=== PATIENT | male | born 1980 | race Caucasian/White ===

== ENCOUNTER 2024-12-15 12:06 | Inpatient (IN) | payer OTHER, SELFPAY ==
[2024-12-15] VITALS (22 sets, daily range): BP systolic 147–192; BP diastolic 88–151; PULSE 95–123; RESP 8–35; TEMP 36.1–36.2; O2SAT 91–100; BMI 31.0
--- NOTE | 2024-12-15 12:10 | EKG_ITS ---
[address] [address] Test Date: 2024-12-15 Pat Name: Darell Nelson Department: Room: Gender: Male Flight Follower: DAVIAN : 1980 Requested By: Order Number: [id number] Reading MD: Dudley Hernandez Measurements Intervals [place] Rate: 98 P: 65 HI: 162 QRS: 64 QRSD: 110 T: 45 QT: 370 QTc: 472 Interpretive Statements Sinus rhythm Incomplete right bundle branch block Electronically Signed On 12-19-2024 9:11:46 PDT by Dudley Hernandez
--- NOTE | 2024-12-15 12:10 | DI.RAD.S_ITS ---
PROCEDURE: XR CHEST 1V INDICATIONS: Chest Pain TECHNIQUE: One view of the chest was acquired. COMPARISON: None. FINDINGS AND IMPRESSION: Large left pneumothorax. Called to Dr. Starr. Surveillance imaging for recommended following treatment to exclude underlying lesion. Normal heart size. Unremarkable osseous structures. Dictated by: Kofi Keenan M.D. on 12/15/2024 at 13:01 Approved by: Kofi Keenan M.D. on 12/15/2024 at 13:02
--- NOTE | 2024-12-15 12:46 | ED_ITS ---
HPI - Chest Pain General Chief Complaint: Chest Pain Stated Complaint: SOB, chesp pain Lt shoulder pain blurred vision Time Seen by Provider: 12/15/24 12:37 Source: patient Mode of arrival: Ambulatory Limitations: no limitations History of Present Illness HPI narrative: This is a 44-year-old male who is previously healthy complaining of left-sided chest pain with shortness of breath. Onset was about an hour prior to arrival. Says that he got up to get a glass of water and suddenly started feeling pain in the left side of the chest, he also says he felt a little lightheaded and briefly had blurry vision. He is still having some chest pain and it hurts to breathe. 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 Has not been coughing has not had fevers no chest trauma recently. Related Data Home Medications ?Medication ?Instructions ?Recorded ?Confirmed No Known Home Medications 12/15/24 080 10/04 Allergies Allergy/AdvReac Type Severity Reaction Status Date / Time No Known Drug Allergies Allergy Verified 12/15/24 16:24 Patient History Social History household members: none Smoking Status: Current every day smoker tobacco type: vaping Exam Initial Vital Signs Initial Vital Signs: Vital Signs Temperature 96.9 F L 12/15/24 12:11 Pulse Rate 101 H 12/15/24 12:11 Respiratory Rate 20 12/15/24 12:11 Blood Pressure 177/102 H 12/15/24 12:11 Pulse Oximetry 100 12/15/24 12:11 Oxygen Delivery Method Room Air 12/15/24 12:11 vital signs are reviewed Const General: cooperative and No acute distress [facility] Head: normocephalic and atraumatic Face and sinus: face symmetric Mouth: moist mucous membranes Eyes Pupils: PERRL EOM: EOM intact bilaterally Neck Neck: normal visual inspection, supple and No JVD Chest Chest: normal inspection of the chest Resp Other: Lungs are clear, decreased breath sounds on the left, no crepitance Cardio Rate: regular rate Rhythm: regular rhythm Heart Sounds: no murmurs Other: Normal heart rate GI Inspection: normal to inspection Palpation: soft Auscultation: normal bowel sounds Back/Spine/Pelvis Back: normal to inspection Skin General: no rashes or lesions noted and warm Neuro General: patient alert, patient oriented x3 and moves all extremities Speech: speech normal Extrem General: full ROM Psych Appearance: grossly normal Course Orders Ordered: ED Orders 12/15/24 11:52 Complete Blood Count AUTO DIFF Stat Comprehensive Metabolic Panel Stat Lipase Stat Magnesium Stat NT-proBNP (BNP-Adult 18+) Stat PTT Partial Thromboplastin Andrade Stat Prothrombin Time INR Stat Troponin & CK Cardiac Panel Stat 12/15/24 12:10 XR chest 1V Stat EKG-12 Lead Stat 12/15/24 12:42 Consult to General Surgery Stat 12/15/24 13:38 Chest [XR chest 1V] Stat 12/15/24 14:23 Urine Drug Screen, Rapid Stat EKG-12 Lead Stat 12/15/24 15:02 Troponin & CK Cardiac Panel Stat Type and Screen Stat 12/16/24 Lipase Routine 12/16/24 14:23 Complete Blood Count AUTO DIFF Stat Comprehensive Metabolic Panel Stat Ondansetron HCl (Ondansetron 4 Mg/2 Ml Inj) 4 mg IV Q4HR JUN Discontinued Medications Hydrocodone Bitart/Acetaminophen (Hydrocodone/Acet 5/325 Tablet) 1 tab PO NOW ONE Stop: 12/15/24 14:24 Aspirin (Aspirin 81 Mg Chew Tab) 324 mg PO NOW ONE Stop: 12/15/24 12:10 Last Admin: 12/15/24 12:43 Dose: Not Given Documented By: PATRICIA Diazepam (Diazepam 10 Mg/2 Ml Syringe) 5 mg IV NOW ONE Stop: 12/15/24 13:07 Last Admin: 12/15/24 13:22 Dose: 5 mg Documented By: ELISHA Diazepam (Diazepam 10 Mg/2 Ml Syringe) 5 mg IV NOW ONE Stop: 12/15/24 14:38 Last Admin: 12/15/24 14:40 Dose: 5 mg Documented By: [facility] Diphtheria/Tetanus/Acell Pertussis (Tet,Diph,Pertuss(Acell),Vac/Pf 0.5 Ml Syringe) 0.5 ml IM .ONCE ONE Stop: 12/15/24 14:24 Hydromorphone HCl (Hydromorphone 1 Mg Inj) 1 mg IV NOW ONE Stop: 12/15/24 12:43 Last Admin: 12/15/24 14:32 Dose: Not Given Documented By: MARIZOL Lidocaine/Epinephrine (Lidocaine 1% W/Epi 10ml) 4 ml INJ INTRA-OP ONE Stop: 12/15/24 13:19 Last Admin: 12/15/24 14:35 Dose: 4 ml Documented By: ELISHA Morphine Sulfate (Morphine 4 Mg/Ml Inj) 10 mg IV NOW ONE Stop: 12/15/24 13:07 Last Admin: 12/15/24 14:34 Dose: 10 mg Documented By: ELISHA Morphine Sulfate (Morphine 4 Mg/Ml Inj) 10 mg IV NOW ONE Stop: 12/15/24 13:43 Last Admin: 12/15/24 13:42 Dose: 10 mg Documented By: ELISHA Morphine Sulfate (Morphine 4 Mg/Ml Inj) 4 mg IV NOW ONE Stop: 12/15/24 14:39 Last Admin: 12/15/24 13:50 Dose: 4 mg Documented By: ELISHA Consultations Consultation #1: Consulted General surgery Dr. Montalvo immediately after seeing the patient. Chest tube was placed by Dr. Linda hudson. Patient will be admitted to Dr. Santana for Vital Signs Vital signs: Vital Signs - 8 hr 12/15/24 12:11 12/15/24 12:39 12/15/24 12:58 Temperature 96.9 F L Pulse Rate 101 H 99 H 104 H Respiratory Rate 20 20 Blood Pressure 177/102 H 192/151 H Pulse Oximetry 100 91 94 Oxygen Delivery Method Room Air Oxygen Flow Rate 12/15/24 13:00 12/15/24 13:02 12/15/24 13:02 Temperature Pulse Rate 101 H 102 H Respiratory Rate 15 22 Blood Pressure 189/106 H Pulse Oximetry 94 94 Oxygen Delivery Method Nasal Cannula Oxygen Flow Rate 2 12/15/24 13:20 12/15/24 13:20 12/15/24 13:27 Temperature Pulse Rate 104 H Respiratory Rate 26 H Blood Pressure 169/113 H 173/106 H Pulse Oximetry Oxygen Delivery Method Oxygen Flow Rate 12/15/24 13:27 12/15/24 13:30 12/15/24 13:30 Temperature Pulse Rate 102 H Respiratory Rate 14 Blood Pressure 189/106 H Pulse Oximetry 100 98 Oxygen Delivery Method Nasal Cannula Oxygen Flow Rate 2 12/15/24 13:30 12/15/24 13:35 12/15/24 13:35 Temperature Pulse Rate 105 H 109 H Respiratory Rate 15 20 Blood Pressure 189/107 H Pulse Oximetry 100 100 Oxygen Delivery Method Oxygen Flow Rate 12/15/24 13:40 12/15/24 13:40 12/15/24 13:45 Temperature Pulse Rate 120 H Respiratory Rate 26 H Blood Pressure 175/95 H 157/98 H Pulse Oximetry 99 Oxygen Delivery Method Oxygen Flow Rate 12/15/24 13:45 12/15/24 13:50 12/15/24 13:50 Temperature Pulse Rate 123 H 118 H Respiratory Rate 21 24 Blood Pressure 169/96 H Pulse Oximetry 98 100 Oxygen Delivery Method Oxygen Flow Rate 12/15/24 13:55 12/15/24 13:55 12/15/24 14:00 Temperature Pulse Rate 111 H 113 H Respiratory Rate 11 L 11 L Blood Pressure 173/96 H Pulse Oximetry 100 100 Oxygen Delivery Method Oxygen Flow Rate 12/15/24 14:00 12/15/24 14:06 12/15/24 14:06 Temperature Pulse Rate 113 H Respiratory Rate 26 H Blood Pressure 183/91 H 191/108 H Pulse Oximetry 100 Oxygen Delivery Method Oxygen Flow Rate 12/15/24 14:16 12/15/24 14:16 12/15/24 14:30 Temperature Pulse Rate 114 H Respiratory Rate 29 H Blood Pressure 177/89 H 163/100 H Pulse Oximetry 98 Oxygen Delivery Method Oxygen Flow Rate 12/15/24 14:30 12/15/24 14:45 12/15/24 14:45 Temperature Pulse Rate 102 H 104 H Respiratory Rate 12 22 Blood Pressure 188/103 H Pulse Oximetry 96 96 Oxygen Delivery Method Oxygen Flow Rate 12/15/24 15:00 12/15/24 15:00 Temperature Pulse Rate 104 H Respiratory Rate 35 H Blood Pressure 174/97 H Pulse Oximetry 94 Oxygen Delivery Method Oxygen Flow Rate MDM - Chest Pain Lab Data Lab results narrative: Normal troponin, CMP is unremarkable except for CO2 of 19. Normal white count and hemoglobin and platelets 12/15/24 11:52 12/15/24 11:52 Labs: Lab Results 12/15/24 Range/Units 11:52 WBC 10.5 (4.5-11.0) X10^3/uL RBC 5.61 (4.5-5.9) X10^6/uL Hgb 16.9 (13.5-17.5) g/dL Hct 48.0 (41-53) % MCV 85.6 (80-100) fL MCH 30.1 (26-34) PG MCHC 35.2 (30-36) % RDW 14.1 (11.6-14.8) % Plt Count 209 (150-400) X10^3/uL Neut % (Auto) 71.1 (50-75) % Lymph % (Auto) 17.9 L (25-40) % [place] % (Auto) 8.0 (3-14) % Eos % (Auto) 1.8 L (2-4) % Baso % (Auto) 1.2 (0-2) % Neut # (Auto) 7500 H (4572-4370) /uL Lymph # (Auto) 1900 (4412-3116) /uL [place] # (Auto) 800 (0-900) /uL Eos # (Auto) 200 (0-450) /uL Baso # (Auto) 100 (0-100) /uL PT 11.2 (9.4-12.5) SECONDS INR 1.0 (0.9-1.3) APTT 33 (25.1-36.5) SECONDS Sodium 137 (137-145) mmol/L Potassium 4.3 (3.4-5.1) mmol/L Chloride 104 (98-107) mmol/L Carbon Dioxide 19 L (22-32) mmol/L BUN 15 (9-20) mg/dL Creatinine 0.99 (0.66-1.25) mg/dL Estimated GFR > 60 (>60) mL/min BUN/Creatinine Ratio 15.2 (6-22) Glucose 94 (70-99) mg/dL Calcium 9.5 (8.4-10.2) mg/dL Magnesium 1.9 (1.6-2.3) mg/dL Total Bilirubin 1.5 H (0.2-1.3) mg/dL AST 52 (17-59) IU/L ALT 53 H (<50) IU/L Alkaline Phosphatase 95 (38-126) U/L Total Creatine Kinase 363 H (55-170) U/L Troponin I < 0.012 (0.01-0.034) ng/mL NT-Pro-B Natriuret Pep < 20 (<125) pg/mL Total Protein 9.0 H (6.3-8.2) g/dL Albumin 5.1 H (3.5-5.0) g/dL Globulin 3.9 (1.7-4.1) g/dL Albumin/Globulin Ratio 1.3 (1.0-2.8) Lipase 39 (23-300) U/L Imaging Data Chest x-ray: My Impression: Independent review his chest x-ray, large left pneumothorax ECG Data Attestation: I personally reviewed and interpreted this ECG as follows: (Normal sinus rhythm at 98 right bundle-branch pattern no acute ST segment changes no old EKG available for comparison) MDM Narrative Medical decision making narrative: 44-year-old man presenting with chest pain was found to have a large pneumothorax of spontaneous etiology. Did not have tension, cardiac workup is reassuring. Patient is admitted to General surgery after chest tube placement by general surgery in the emergency department Discharge Plan Departure Patient Disposition: Admitted As Inpatient Clinical Impression: Pneumothorax Qualifiers: Pneumothorax type: spontaneous, primary Qualified Code(s): J93.11 - Primary spontaneous pneumothorax Admit Date/Time: 12/15/24 15:00 Admit Provider: Mazin Montalvo
[2024-12-15 13:02] LABS: Add Manual Diff / Slide Review NO; Hematocrit 48.0 % (41-53); Hemoglobin 16.9 g/dL (13.5-17.5); Lymphocytes Absolute Auto 1900 /uL (1100-4500); Mean Corpuscular HGB Conc 35.2 % (30-36); Mean Corpuscular Hemoglobin 30.1 PG (26-34); Mean Corpuscular Volume 85.6 fL (80-100); Platelet Count 209 X10^3/uL (150-400)
[2024-12-15 13:11] LABS: INR 1.0 (0.9-1.3); Prothrombin Time 11.2 SECONDS (9.4-12.5)
[2024-12-15 13:14] LABS: PTT Partial Thromboplastin Tim 33 SECONDS (25.1-36.5)
--- NOTE | 2024-12-15 13:38 | DI.RAD.S_ITS ---
PROCEDURE: XR CHEST 1V INDICATIONS: chest tube placement TECHNIQUE: One view of the chest was acquired. COMPARISON: [facility], , XR CHEST 1V, 12/15/2024, 12:18. FINDINGS: Surgical changes and devices: Left mid chest pleural pleural catheter Lungs and pleura: Decreased left pneumothorax with areas of mid lung opacities reflecting resolving atelectasis. No pleural effusion. Left lung is clear. Mediastinum: Mediastinal contours appear normal. Heart size is normal. Bones and chest wall: No suspicious bony lesions. Overlying soft tissues appear unremarkable. IMPRESSION: Decreased size of left pneumothorax status post chest tube placement. Approved by: Melida Wilson M.D.,Ph.D. on 12/15/2024 at 14:53
[2024-12-15] MEDS: MORPHINE 4 MG/ML INJ 10 MG IV ×2 (13:42→14:34)
[2024-12-15] MEDS: MORPHINE 4 MG/ML INJ IV (13:50)
[2024-12-15 14:07] LABS: Alanine Aminotransferase 53 IU/L (<50); Albumin 5.1 g/dL (3.5-5.0); Albumin Globulin Ratio 1.3 (1.0-2.8); Alkaline Phosphatase 95 U/L (38-126); Blood Urea Nitrogen 15 mg/dL (9-20); Calcium 9.5 mg/dL (8.4-10.2); Carbon Dioxide 19 mmol/L (22-32); Chloride 104 mmol/L (98-107); Creatine Kinase 363 U/L (55-170); Estimated Glomerular Filt Rate > 60 mL/min (>60); Globulin 3.9 g/dL (1.7-4.1); Glucose 94 mg/dL (70-99); HEMOLYSIS 53 (0-50); Lipase 39 U/L (23-300); Magnesium 1.9 mg/dL (1.6-2.3); Potassium 4.3 mmol/L (3.4-5.1); Sodium 137 mmol/L (137-145); Total Protein 9.0 g/dL (6.3-8.2)
--- NOTE | 2024-12-15 14:14 | P.HP_ITS ---
History of Present Illness History of Present Illness Date Patient Seen: 12/15/24 Time Patient Seen: 12:30 Date of Onset of Symptoms: 12/15/24 Chief complaint: SOB, chesp pain Lt shoulder pain blurred vision Narrative: Patient is a 44-year-old white male presents to the emergency room left-sided chest pain shortness of breath would occur at work after coughing and approximately 11:30 a.m.. Patient was worked up by the emergency room was noted to have a left 50% pneumothorax I was asked to see patient for surgical evaluation and placement of chest tube. Patient's admitting laboratory shows WBC of 10.5 hemoglobin is 16.9 hematocrit is 48 platelets are 209,000 PT is 11.2 PTT is 33 sodium is 137 potassium 4.3 chloride 104 bicarb is 19 BUN of 5 creatinine 0.99 random blood sugar is 94 total bilirubin is 1.5 AST is 52 ALT is 53 alkaline phosphatase 95 patient's CPK is 363 lipase is 39. Chest x-ray was performed which shows a 50% left pneumothorax. Patient has not seen a family physician in years Allergies: NKDA Medications: None Past medical history: Patient denies any other heart lungs digestive musculoskeletal neurological seizure disorder psychiatric problems risks infectious disease HIV or AIDS Past surgical history unremarkable denies any history of screening scopes Social history works in the [employer], history of tobacco use 1/2-1 pack per day times 25 years. Two years ago vaping for 2-1/2 years alcohol drinks 4 beers per day states they only drinks 12 beers per week denies any recreational drugs but then later recanted and states that he has done all drugs in the past including injecting meth. Vitals: Patient is 5 ft 9210 lb, temperature is 96.9? pulse is 104 respirations 20 BP is 192/151 SaO2 is 94% Heart regular rate and rhythm without murmurs lungs are clear and the right but no breath sounds are noted on the left abdomen is soft nondistended and a moist gauze Allison Almazan's Lui's McBurney's no masses or peritoneal signs are elicited musculoskeletal moderate muscle tone and strength bilaterally no gross deficits elicited in Patient was seen in consultation discussed with patient the need for chest tube placement procedure risks and complications were fully explained including risk for cardiopulmonary depression infection bleeding and need for a larger chest tube if dislodged. Patient understood and consented consent was performed time- out was performed patient procedure and surgeon. Patient was prepped and draped in usual sterile fashion with Lamin. The patient was given adequate IV sedation was given 10 of Valium and morphine 20 mg patient was still awake and communicating. Patient with liberally injected with xylocaine 1% with epi overlying the 5th 6th interspace liberally injected the skin subQ and the intercostals and the periosteum of the superior rib. Incision was made with 15. Knife blade dissected down with a large hemostat entered into the chest cavity with a large gush of air the 20 Wolof tube was inserted with a hemostat advanced to the appropriate distance and then placed a suction suctioned to the pleura vac previously been prepared was quite poor with withdrawing the tube and had excellent air flow no active air leak was noted this was then sutured in place with 0 silk x2 patient then had drain sponge was applied bulky bandage and taped in place with silk tape the connection to the Pleur-evac was taped with silk tape chest x-ray shows reinflation of the left lung. Impression: Left spontaneous pneumothorax need for left chest tube History of tobacco abuse 1/2-1 pack per day times 25 years. 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 Slightly elevated CPK Elevated total bilirubin Plan: Discussed with patient the finding we will go ahead and admit to the hospital and monitor we will consult the hospitalist for the changes in the CPK we will go ahead and continue suction for the Pleur-Evac 0 if thought lung remains inflated for 24 hours we will DC suctioned and DC chest tube in the next 48 hours patient will also have a drug screen performed as do the elevated bilirubin we will follow patient closely no need for replacement with the tube patient was given precautions about getting out of bed if he dislodged as the tube may need to reinserted at bedside patient understands all questions answered to satisfaction we will follow patient closely. No letter to family physician he has none. Meds Home Medications and Allergies Allergies Allergy/AdvReac Type Severity Reaction Status Date / Time No Known Drug Allergies Allergy Verified 12/15/24 12:11 Exam Vital Signs (past 8 hours): - 12/15/24 12:11 12/15/24 12:39 12/15/24 12:58 Temperature 96.9 F L Pulse Rate 101 H 99 H 104 H Respiratory Rate 20 20 Blood Pressure 177/102 H 192/151 H Pulse Oximetry 100 91 94 Oxygen Delivery Method Room Air Oxygen Flow Rate 12/15/24 13:30 Temperature Pulse Rate Respiratory Rate Blood Pressure Pulse Oximetry 98 Oxygen Delivery Method Nasal Cannula Oxygen Flow Rate 2 Oxygen Delivery Method Nasal Cannula Oxygen Flow Rate 2 Objective Labs 12/15/24 11:52 12/15/24 11:52 Labs: Laboratory Results - last 24 hr 12/15/24 11:52 WBC 10.5 RBC 5.61 Hgb 16.9 Hct 48.0 MCV 85.6 MCH 30.1 MCHC 35.2 RDW 14.1 Plt Count 209 Neut % (Auto) 71.1 Lymph % (Auto) 17.9 L [place] % (Auto) 8.0 Eos % (Auto) 1.8 L Baso % (Auto) 1.2 Neut # (Auto) 7500 H Lymph # (Auto) 1900 [place] # (Auto) 800 Eos # (Auto) 200 Baso # (Auto) 100 PT 11.2 INR 1.0 APTT 33 Sodium 137 Potassium 4.3 Chloride 104 Carbon Dioxide 19 L BUN 15 Creatinine 0.99 Estimated GFR > 60 BUN/Creatinine Ratio 15.2 Glucose 94 Calcium 9.5 Magnesium 1.9 Total Bilirubin 1.5 H AST 52 ALT 53 H Alkaline Phosphatase 95 Total Creatine Kinase 363 H Total Protein 9.0 H Albumin 5.1 H Globulin 3.9 Albumin/Globulin Ratio 1.3 Lipase 39 Assessment & Plan Time-Based Coding :: [TOTAL MINUTES] spent with patient and on the chart (including review of chart, obtaining history, exam, reviewing outside data, placing orders, documenting exam and treatment plan, and counseling patient) on [DATE]. [employer] Document charge(s): Yes
[2024-12-15 14:18] LABS: NT-proBNP (BNP-Adult 18+) < 20 pg/mL (<125); Troponin I < 0.012 ng/mL (0.01-0.034)
[2024-12-15] MEDS: LIDOCAINE 1% W/EPI 10ML 4 ML INJ (14:35)
--- NOTE | 2024-12-15 15:16 | DI.RAD.S_ITS ---
PROCEDURE: XR CHEST 1V INDICATIONS: chest tube manipulation TECHNIQUE: One view of the chest was acquired. COMPARISON: [facility], [place], XR CHEST 1V, 12/15/2024, 13:45. [facility], CR, XR CHEST 1V, 12/15/2024, 12:18. FINDINGS AND IMPRESSION: Left chest tube, now positioned slightly deeper. [id number] left pneumothorax persists, though decreased from initial images. There is subcutaneous emphysema. Normal heart size. Dictated by: Kofi Keenan M.D. on 12/15/2024 at 15:44 Approved by: Kofi Keenan M.D. on 12/15/2024 at 15:45
[2024-12-15 15:29] LABS: Creatine Kinase 316 U/L (55-170)
[2024-12-15 15:41] LABS: Troponin I < 0.012 ng/mL (0.01-0.034)
--- NOTE | 2024-12-15 18:05 | P.CONS_ITS ---
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 Finding in the emergency room significant for potential pneumothorax of the left lung. Chest tube was placed with reinflation. Incidental findings in the workup were significant for mild elevation of bilirubin 1.5 CK of 363. The remainder of the hemogram and comprehensive metabolic profile were unremarkable. Social history significant for history of smoking and present vaping and reported consumption of a 12 pack of alcohol consumed over the the week and occasionally some larger consumption on the weekend. Review of systems: No fever or chills No unusual weight loss or weight gain No nausea vomiting diarrhea No dyspnea with exertion normally No paresthesia or paresis Physical exam: Well-developed adult male obese but muscular HEENT unremarkable Neck no carotid bruits Heart rate and rhythm regular no murmurs Lungs with a pleural rub on the left normal lung sounds in the right Abdomen nondistended Extremities no edema Neurologic nonfocal For objective laboratory and imaging data please see bottom of the note: Assessment and plan: Spontaneous tension pneumothorax status post chest tube placement with good seal and good inflation * Management per surgery service CPK 360: * Seems to be deescalating already maybe some muscle injury from previous heavy work yesterday * Doubt this is clinically significant Slight elevation of bilirubin 1.5 * Might be liver injury from alcohol consumption * Check hepatitis panel * Discontinue alcohol consult Alcohol consumption * May be compromising patient's health * Recommended abstinence DVT prophylaxis: * No indication Code status: * Full code Fifty-five minutes were involved in the management of this patient in including direct [id number] contact and evaluation of the patient review of objective findings laboratory and direct visualization of images and discussion with surgeon and emergency room physician Meds Home Medications and Allergies Home Medications ?Medication ?Instructions ?Recorded ?Confirmed ?Type No Known Home Medications 12/15/2410/04 History Allergies Allergy/AdvReac Type Severity Reaction Status Date / Time No Known Drug Allergies Allergy Verified 12/15/24 16:24 Exam Vital Signs (past 8 hours): - 12/15/24 12:11 12/15/24 12:39 12/15/24 12:58 Temperature 96.9 F L Pulse Rate 101 H 99 H 104 H Respiratory Rate 20 20 Blood Pressure 177/102 H 192/151 H Pulse Oximetry 100 91 94 Oxygen Delivery Method Room Air Oxygen Flow Rate 12/15/24 13:00 12/15/24 13:02 12/15/24 13:02 Temperature Pulse Rate 101 H 102 H Respiratory Rate 15 22 Blood Pressure 189/106 H Pulse Oximetry 94 94 Oxygen Delivery Method Nasal Cannula Oxygen Flow Rate 2 12/15/24 13:20 12/15/24 13:20 12/15/24 13:27 Temperature Pulse Rate 104 H Respiratory Rate 26 H Blood Pressure 169/113 H 173/106 H Pulse Oximetry Oxygen Delivery Method Oxygen Flow Rate 12/15/24 13:27 12/15/24 13:30 12/15/24 13:30 Temperature Pulse Rate 102 H Respiratory Rate 14 Blood Pressure 189/106 H Pulse Oximetry 100 98 Oxygen Delivery Method Nasal Cannula Oxygen Flow Rate 2 12/15/24 13:30 12/15/24 13:35 12/15/24 13:35 Temperature Pulse Rate 105 H 109 H Respiratory Rate 15 20 Blood Pressure 189/107 H Pulse Oximetry 100 100 Oxygen Delivery Method Oxygen Flow Rate 12/15/24 13:40 12/15/24 13:40 12/15/24 13:45 Temperature Pulse Rate 120 H Respiratory Rate 26 H Blood Pressure 175/95 H 157/98 H Pulse Oximetry 99 Oxygen Delivery Method Oxygen Flow Rate 12/15/24 13:45 12/15/24 13:50 12/15/24 13:50 Temperature Pulse Rate 123 H 118 H Respiratory Rate 21 24 Blood Pressure 169/96 H Pulse Oximetry 98 100 Oxygen Delivery Method Oxygen Flow Rate 12/15/24 13:55 12/15/24 13:55 12/15/24 14:00 Temperature Pulse Rate 111 H 113 H Respiratory Rate 11 L 11 L Blood Pressure 173/96 H Pulse Oximetry 100 100 Oxygen Delivery Method Oxygen Flow Rate 12/15/24 14:00 12/15/24 14:06 12/15/24 14:06 Temperature Pulse Rate 113 H Respiratory Rate 26 H Blood Pressure 183/91 H 191/108 H Pulse Oximetry 100 Oxygen Delivery Method Oxygen Flow Rate 12/15/24 14:16 12/15/24 14:16 12/15/24 14:30 Temperature Pulse Rate 114 H Respiratory Rate 29 H Blood Pressure 177/89 H 163/100 H Pulse Oximetry 98 Oxygen Delivery Method Oxygen Flow Rate 12/15/24 14:30 12/15/24 14:45 12/15/24 14:45 Temperature Pulse Rate 102 H 104 H Respiratory Rate 12 22 Blood Pressure 188/103 H Pulse Oximetry 96 96 Oxygen Delivery Method Oxygen Flow Rate 12/15/24 15:00 12/15/24 15:00 12/15/24 15:15 Temperature Pulse Rate 104 H Respiratory Rate 35 H Blood Pressure 174/97 H 159/99 H Pulse Oximetry 94 Oxygen Delivery Method Oxygen Flow Rate 12/15/24 15:15 12/15/24 15:30 12/15/24 15:30 Temperature Pulse Rate 98 H 95 H Respiratory Rate 32 H 8 L Blood Pressure 147/88 H Pulse Oximetry 98 99 Oxygen Delivery Method Oxygen Flow Rate Oxygen Delivery Method Nasal Cannula Oxygen Flow Rate 2 Objective Labs 12/15/24 11:52 12/15/24 11:52 Labs: Laboratory Results - last 24 hr 12/15/24 12/15/24 11:52 15:02 WBC 10.5 RBC 5.61 Hgb 16.9 Hct 48.0 MCV 85.6 MCH 30.1 MCHC 35.2 RDW 14.1 Plt Count 209 Neut % (Auto) 71.1 Lymph % (Auto) 17.9 L [place] % (Auto) 8.0 Eos % (Auto) 1.8 L Baso % (Auto) 1.2 Neut # (Auto) 7500 H Lymph # (Auto) 1900 [place] # (Auto) 800 Eos # (Auto) 200 Baso # (Auto) 100 PT 11.2 INR 1.0 APTT 33 Sodium 137 Potassium 4.3 Chloride 104 Carbon Dioxide 19 L BUN 15 Creatinine 0.99 Estimated GFR > 60 BUN/Creatinine Ratio 15.2 Glucose 94 Calcium 9.5 Magnesium 1.9 Total Bilirubin 1.5 H AST 52 ALT 53 H Alkaline Phosphatase 95 Total Creatine Kinase 363 H 316 H Troponin I < 0.012 < 0.012 NT-Pro-B Natriuret Pep < 20 Total Protein 9.0 H Albumin 5.1 H Globulin 3.9 Albumin/Globulin Ratio 1.3 Lipase 39 Blood Type O Positive Antibody Screen Negative PFSH Social History household members: none Tobacco & Substance Use Smoking Status: Current every day smoker Assessment & Plan Time-Based Coding :: [TOTAL MINUTES] spent with patient and on the chart (including review of chart, obtaining history, exam, reviewing outside data, placing orders, documenting exam and treatment plan, and counseling patient) on [DATE].
[2024-12-15] MEDS: OXYCODONE IR 10 MG TABLET PO (18:33)
[2024-12-15] MEDS: ONDANSETRON 4 MG/2 ML INJ IV (18:38)
[2024-12-15] MEDS: ACETAMINOPHEN 325 MG TABLET 650 MG PO (21:10)
--- NOTE | 2024-12-15 23:15 | DI.RAD.S_ITS ---
PROCEDURE: XR CHEST 1V INDICATIONS: increased pain/wheezing TECHNIQUE: One view of the chest was acquired. COMPARISON: [facility], CR, XR CHEST 1V, 12/15/2024, 15:16. [facility], CR, XR CHEST 1V, 12/15/2024, 13:45. FINDINGS: Surgical changes and devices: Left-sided chest tube in place. Lungs and pleura: Left pneumothorax appears similar to prior, however significant overlying subcutaneous emphysema limits evaluation. Mediastinum: Mediastinal contours appear normal. Heart size is normal. Bones and chest wall: Increased left chest wall subcutaneous emphysema. No suspicious bony lesions. Overlying soft tissues appear unremarkable. IMPRESSION: Left chest wall chest tube appears to be in stable position. Significant subcutaneous emphysema over the left chest wall and visualized neck has increased compared to prior. Left-sided pneumothorax appears grossly similar compared to prior, however significant overlying subcutaneous emphysema limits evaluation. Dictated by: Gonzalez Simpson M.D. on 12/15/2024 at 23:34 Approved by: Gonzalez Simpson M.D. on 12/15/2024 at 23:37
[2024-12-16] VITALS: BP 150/75; PULSE 106; RESP 12; TEMP 36.5; O2SAT 95
[2024-12-16] MEDS: IBUPROFEN 600 MG TABLET PO ×2 (03:02→08:55)
[2024-12-16 04:00] VITALS: BP 148/88; PULSE 98; RESP 14; TEMP 36.6; O2SAT 96
[2024-12-16] MEDS: ACETAMINOPHEN 325 MG TABLET 650 MG PO ×2 (04:25→14:48)
[2024-12-16 04:49] LABS: Add Manual Diff / Slide Review NO; Hematocrit 44.9 % (41-53); Hemoglobin 15.8 g/dL (13.5-17.5); Lymphocytes Absolute Auto 800 /uL (1100-4500); Mean Corpuscular HGB Conc 35.1 % (30-36); Mean Corpuscular Hemoglobin 30.0 PG (26-34); Mean Corpuscular Volume 85.4 fL (80-100); Platelet Count 191 X10^3/uL (150-400)
[2024-12-16 05:00] LABS: Alanine Aminotransferase 39 IU/L (<50); Albumin 4.3 g/dL (3.5-5.0); Albumin Globulin Ratio 1.4 (1.0-2.8); Alkaline Phosphatase 77 U/L (38-126); Blood Urea Nitrogen 16 mg/dL (9-20); Calcium 8.6 mg/dL (8.4-10.2); Carbon Dioxide 22 mmol/L (22-32); Chloride 103 mmol/L (98-107); Estimated Glomerular Filt Rate > 60 mL/min (>60); Globulin 3.1 g/dL (1.7-4.1); Glucose 112 mg/dL (70-99); HEMOLYSIS < 15 (0-50); Potassium 4.1 mmol/L (3.4-5.1); Sodium 133 mmol/L (137-145); Total Protein 7.4 g/dL (6.3-8.2)
[2024-12-16 05:01] LABS: Lipase 25 U/L (23-300)
[2024-12-16 05:29] LABS: UR Morphine/Opiate cutoff 300 Positive (Negative); Ur Specific Gravity Normal (Normal); Urine MDMA Negative (Negative); Urine Methamphetamines Negative (Negative); Urine Tetrahydrocannabinol Negative (Negative)
[2024-12-16 05:30] LABS: Urine Tricyclic Antidepressant Negative (Negative)
--- NOTE | 2024-12-16 07:35 | PC.NURSE ---
~2300 pt complains of increased pain (giving tylenol and ibuproufen per pt request to hold narcotics if possible), and notes an increase in the wheezing/bubbling noise from the drainage system. Air leak chamber bubbling in all markers every 5-15 seconds, regardless of position changes. Coarse crackling auscultated to L lung, R lung clear. Dressing was near-saturated with serousanguinous drainage. Dressing changed w/occlusive dressing primary, gauze/silk tape secondary. CXR reveals CT in place/no pneumo, but more subcutaneous emphysema visualized. Chest tube drainage system changed, and line inspected for leaks. Dr Montavlo contacted and made aware. Urine tox panel collected, and positive results for opoids and benzos expected r/t admin of Morphine/Valium for chest tube placement yesterday. Pt not requiring oxygen and states no concerns.
[2024-12-16 08:00] VITALS: BP 142/91; PULSE 78; RESP 16; TEMP 35.9; O2SAT 96
--- NOTE | 2024-12-16 08:47 | P.PN_ITS ---
Subjective Subjective Date Patient Seen: 12/16/24 Time Patient Seen: 08:45 Interval history: Patient is resting comfortably just some mild chest tube discomfort. Postop day 1. Chest tube for spontaneous left pneumothorax. Patient had an episode of more discomfort when he was set up of nurses did a chest x-ray at approximately midnight which showed no signs of pneumothorax with chest tube in appropriate position but patient is developing some subcu emphysema with ongoing air leak noted on Pleur-evac with suctioned still on. Patient's morning chest x-ray is pending. Patient is well controlled with oral narcotics no nausea or vomiting. Patient has morning laboratory shows WBC is 11.9 hemoglobin is 15.8 hematocrit is 44.9 platelets a 191,000 sodium is 133 potassium 4.1 chloride 103 bicarb is 22 BUN of 16 creatinine of 0.93 random blood sugar is 112 total bilirubin is 1.7 AST is 32 a LT is 39 alkaline phosphatase 77 CPK is down to 316 troponin was less than 0.012. A.m. chest x-ray is pending Vitals: Temperature is 98.0? pulse 98 respirations 14 BP is 148/88 SaO2 is 96% on room air Heart regular rate and rhythm without murmurs. Lungs diminished breath sounds on the left side with subcu emphysematous changes and crepitus. Pleur-evac is showing air leak with coughing on suction. Abdomen is soft nondistended no masses or peritoneal signs. Impression: Postop day 1. Left chest tube for spontaneous pneumothorax Pleur- Evac showing active leak Elevated CPK with normal troponin probably due to subcu emphysema and air leak History of tobacco abuse Plan: We will continue with daily chest x-rays patient continues to have a pleural leak would warrant possible transfer for VATS. Patient understands if air leak seals would discontinue suctioned a Pleur-Evac if the lung remains up with DC the next 24 hours but patient has a pretty persistent leak we will follow patient closely all questions were answered to patient's satisfaction. Exam Vital Signs (past 8 hours): - 12/16/24 04:00 Temperature 98 F Pulse Rate 98 H Respiratory Rate 14 Blood Pressure 148/88 H Pulse Oximetry 96 Oxygen Flow Rate 0 Oxygen Delivery Method Nasal Cannula Oxygen Flow Rate 0 Objective Labs 12/16/24 04:20 12/16/24 04:20 Labs: Laboratory Results - last 24 hr 12/15/24 12/15/24 12/16/24 11:52 15:02 04:20 WBC 10.5 11.9 H RBC 5.61 5.26 Hgb 16.9 15.8 Hct 48.0 44.9 MCV 85.6 85.4 MCH 30.1 30.0 MCHC 35.2 35.1 RDW 14.1 14.5 Plt Count 209 191 Neut % (Auto) 71.1 87.6 H Lymph % (Auto) 17.9 L 6.6 L [place] % (Auto) 8.0 4.9 Eos % (Auto) 1.8 L 0.7 L Baso % (Auto) 1.2 0.2 Neut # (Auto) 7500 H 51461 H Lymph # (Auto) 1900 800 L [place] # (Auto) 800 600 Eos # (Auto) 200 100 Baso # (Auto) 100 0 PT 11.2 INR 1.0 APTT 33 Sodium 137 133 L Potassium 4.3 4.1 Chloride 104 103 Carbon Dioxide 19 L 22 BUN 15 16 Creatinine 0.99 0.93 Estimated GFR > 60 > 60 BUN/Creatinine Ratio 15.2 17.2 Glucose 94 112 H Calcium 9.5 8.6 Magnesium 1.9 Total Bilirubin 1.5 H 1.7 H AST 52 32 ALT 53 H 39 Alkaline Phosphatase 95 77 Total Creatine Kinase 363 H 316 H Troponin I < 0.012 < 0.012 NT-Pro-B Natriuret Pep < 20 Total Protein 9.0 H 7.4 Albumin 5.1 H 4.3 Globulin 3.9 3.1 Albumin/Globulin Ratio 1.3 1.4 Lipase 39 25 U Opiates 300ng/mL cut Ur Oxycodone Screen Urine Methadone Screen Ur Barbiturates Screen U Tricyclic Antidepress Ur Phencyclidine Scrn Ur Amphetamines Screen U Methamphetamines Scrn Ur MDMA Scrn (Ecstasy) U Benzodiazepines Scrn Urine Cocaine Screen U Marijuana (THC) Screen Urine pH Urine Specific [place] Ur Creatinine Blood Type O Positive Antibody Screen Negative 12/16/24 04:44 WBC RBC Hgb Hct MCV MCH MCHC RDW Plt Count Neut % (Auto) Lymph % (Auto) [place] % (Auto) Eos % (Auto) Baso % (Auto) Neut # (Auto) Lymph # (Auto) [place] # (Auto) Eos # (Auto) Baso # (Auto) PT INR APTT Sodium Potassium Chloride Carbon Dioxide BUN Creatinine Estimated GFR BUN/Creatinine Ratio Glucose Calcium Magnesium Total Bilirubin AST ALT Alkaline Phosphatase Total Creatine Kinase Troponin I NT-Pro-B Natriuret Pep Total Protein Albumin Globulin Albumin/Globulin Ratio Lipase U Opiates 300ng/mL cut Positive H Ur Oxycodone Screen Positive H Urine Methadone Screen Negative Ur Barbiturates Screen Negative U Tricyclic Antidepress Negative Ur Phencyclidine Scrn Negative Ur Amphetamines Screen Negative U Methamphetamines Scrn Negative Ur MDMA Scrn (Ecstasy) Negative U Benzodiazepines Scrn Positive H Urine Cocaine Screen Negative U Marijuana (THC) Screen Negative Urine pH Normal Urine Specific [place] Normal Ur Creatinine Normal Blood Type Antibody Screen PFSH Social History household members: none Smoking Status: Current every day smoker Assessment & Plan Time-Based Coding :: [TOTAL MINUTES] spent with patient and on the chart (including review of chart, obtaining history, exam, reviewing outside data, placing orders, documenting exam and treatment plan, and counseling patient) on [DATE]. PROFEE Working Manager Document charge(s): Yes
--- NOTE | 2024-12-16 08:57 | DI.RAD.S_ITS ---
PROCEDURE: XR CHEST 1V INDICATIONS: Chest tube TECHNIQUE: One view of the chest was acquired. COMPARISON: [facility], CR, XR CHEST 1V, 12/15/2024, 23:12. [facility], CR, XR CHEST 1V, 12/15/2024, 15:16. FINDINGS: Surgical changes and devices: Interval retraction of the left-sided chest tube; the side-port still projects over the left lung. Lungs and pleura: Lungs are clear. No pleural effusions or pneumothorax. Mediastinum: Mediastinal contours appear normal. Heart size is normal. Bones and chest wall: Extensive subcutaneous gas in the left chest wall and lower neck, stable. IMPRESSION: Slight interval retraction of the left-sided chest tube. The side port still projects over the left lung. No appreciable pneumothorax. Stable extensive subcutaneous gas. Dictated by: Alexy Triplett M.D. on 12/16/2024 at 9:50 Approved by: Alexy Triplett M.D. on 12/16/2024 at 9:52
--- NOTE | 2024-12-16 09:02 | CM.DANOTE ---
Initial DCP Assessment Note Pt is a 44yo male, resident of [place],Postop day 1. Left chest tube for spontaneous pneumothorax, Pleur-Evac showing active leak, patient may need transfer if leak does not seal. General surgery following. PCP: Patient reports he has not seen a doctor for 12 years Payer: [employer] Reviewed chart, patient lives alone, independently on [place]. Parents as primary contacts. Patient appears to be at his functional and cognitive baseline. No barriers identified at this time to patient's safe discharge home w/family to assist as needed; close outpatient f/u recommended. Social work team will plan to follow clinical course closely in case any DC needs or concerns arise. PATRICIA Magdaleno Discharge Planning/Care Management CM Discharge Assessment Start: 12/15/24 15:15 Freq: Status: Active Protocol: Document 12/16/24 08:58 KELLY (Rec: 12/16/24 09:02 KELLY [id number]) Discharge Planning Assessment Assigned Discharge PATRICIA Garcia [employer] Operator DPOA/Assigned Cami Nelson, mother Designee Name Contact Information [phone] Advance Directives? No History Provided By Patient,Medical Record Prior Living House Arrangements Household Members none Type of Drives own vehicle transporation used prior to admit Independent with ADL Yes 's Is patient alert and Yes oriented? Comment Independent Comment Home Barriers to No Discharge Discharge Plan Home Transportation Family Arrangement Referrals Initiated None needed Additional Comment Patient may need to transfer if pleural air leak does not resolve
[2024-12-16 12:00] VITALS: BP 150/94; PULSE 77; RESP 16; TEMP 36; O2SAT 95
--- NOTE | 2024-12-16 14:21 | P.PN_ITS ---
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 Finding in the emergency room significant for potential pneumothorax of the left lung. Chest tube was placed with reinflation. Incidental findings in the workup were significant for mild elevation of bilirubin 1.5 CK of 363. The remainder of the hemogram and comprehensive metabolic profile were unremarkable. Social history significant for history of smoking and present vaping and reported consumption of a 12 pack of alcohol consumed over the the week and occasionally some larger consumption on the weekend. Hospital course: 12/16: Enduring the chest tube minimal pain medication requirement no dyspnea Review of systems: No fever or chills No unusual weight loss or weight gain No nausea vomiting diarrhea No dyspnea with exertion normally No paresthesia or paresis Physical exam: Well-developed adult male obese but muscular HEENT unremarkable Neck no carotid bruits Heart rate and rhythm regular no murmurs Lungs with a pleural rub on the left normal lung sounds in the right Abdomen nondistended Extremities no edema Neurologic nonfocal Assessment and plan: Spontaneous tension pneumothorax status post chest tube placement with good seal and good inflation * Management per surgery service CPK 360: * Seems to be deescalating already maybe some muscle injury from previous heavy work yesterday * Doubt this is clinically significant Slight elevation of bilirubin 1.5 * Might be liver injury from alcohol consumption * Check hepatitis panel * Discontinue alcohol consumption advised Alcohol consumption * May be compromising patient's health * Recommended abstinence DVT prophylaxis: * No indication Code status: * Full code Thirty-five minutes were involved in the management of this patient in including direct [id number] contact and evaluation of the patient review of objective findings laboratory and direct visualization of images and discussion with surgeon Exam Vital Signs (past 8 hours): - 12/16/24 08:00 12/16/24 12:00 Temperature 96.7 F L 96.8 F L Pulse Rate 78 77 Respiratory Rate 16 16 Blood Pressure 142/91 H 150/94 H Pulse Oximetry 96 95 Oxygen Delivery Method Nasal Cannula Oxygen Flow Rate 0 Objective Labs 12/16/24 04:20 12/16/24 04:20 Labs: Laboratory Results - last 24 hr 12/15/24 12/16/24 12/16/24 15:02 04:20 04:44 WBC 11.9 H RBC 5.26 Hgb 15.8 Hct 44.9 MCV 85.4 MCH 30.0 MCHC 35.1 RDW 14.5 Plt Count 191 Neut % (Auto) 87.6 H Lymph % (Auto) 6.6 L [place] % (Auto) 4.9 Eos % (Auto) 0.7 L Baso % (Auto) 0.2 Neut # (Auto) 35367 H Lymph # (Auto) 800 L [place] # (Auto) 600 Eos # (Auto) 100 Baso # (Auto) 0 Sodium 133 L Potassium 4.1 Chloride 103 Carbon Dioxide 22 BUN 16 Creatinine 0.93 Estimated GFR > 60 BUN/Creatinine Ratio 17.2 Glucose 112 H Calcium 8.6 Total Bilirubin 1.7 H AST 32 ALT 39 Alkaline Phosphatase 77 Total Creatine Kinase 316 H Troponin I < 0.012 Total Protein 7.4 Albumin 4.3 Globulin 3.1 Albumin/Globulin Ratio 1.4 Lipase 25 U Opiates 300ng/mL cut Positive H Ur Oxycodone Screen Positive H Urine Methadone Screen Negative Ur Barbiturates Screen Negative U Tricyclic Antidepress Negative Ur Phencyclidine Scrn Negative Ur Amphetamines Screen Negative U Methamphetamines Scrn Negative Ur MDMA Scrn (Ecstasy) Negative U Benzodiazepines Scrn Positive H Urine Cocaine Screen Negative U Marijuana (THC) Screen Negative Urine pH Normal Urine Specific [place] Normal Ur Creatinine Normal Blood Type O Positive Antibody Screen Negative PFSH Social History household members: none Smoking Status: Current every day smoker Assessment & Plan Time-Based Coding :: [TOTAL MINUTES] spent with patient and on the chart (including review of chart, obtaining history, exam, reviewing outside data, placing orders, documenting exam and treatment plan, and counseling patient) on [DATE].
[2024-12-16] MEDS: CEFAZOLIN VIAL 1 GM in SODIUM CHLORIDE 0.9% 100 ML IV ×2 (15:10→22:17)
[2024-12-16] MEDS: SODIUM CHLORIDE 0.9% FLUSH 10 ML IV ×2 (15:10→21:05)
[2024-12-16 16:00] VITALS: BP 139/95; PULSE 94; RESP 16; TEMP 36.5; O2SAT 94
--- NOTE | 2024-12-16 18:52 | DI.RAD.S_ITS ---
PROCEDURE: XR CHEST 1V INDICATIONS: chest tube placement/pneumothorax TECHNIQUE: One view of the chest was acquired. COMPARISON: [facility], CR, XR CHEST 1V, 12/16/2024, 8:56. FINDINGS: Surgical changes and devices: Left chest tube is stable in positioning. Distal port is visualized and appears to project over the lung as before. Lungs and pleura: Lungs are clear. No pleural effusions. No definite pneumothorax visualized. Mediastinum: Mediastinal contours appear normal. Heart size is normal. Bones and chest wall: Extensive subcutaneous soft tissue emphysema of the left chest wall and bilateral lower neck. This is not significantly changed. IMPRESSION: Stable positioning of left-sided chest tube with distal port projecting over the left lung. No appreciable pneumothorax identified. Stable appearance of extensive subcutaneous gas. Dictated by: Rocael Dale M.D. on 12/16/2024 at 20:32 Approved by: Rocael Dale M.D. on 12/16/2024 at 20:34
[2024-12-16 19:46] LABS: Creatine Kinase 182 U/L (55-170)
[2024-12-16] MEDS: ONDANSETRON 4 MG/2 ML INJ IV (19:51)
[2024-12-16 19:58] LABS: Troponin I < 0.012 ng/mL (0.01-0.034)
[2024-12-16 21:18] VITALS: BP 149/97; PULSE 76; RESP 16; TEMP 36.1; O2SAT 97
[2024-12-17 00:08] LABS: Hepatitis A Antibody IgM Negative (Negative); Hepatitis B Core Antibody IgM Negative (Negative); Hepatitis C Antibody Non Reactive (Non Reactive)
[2024-12-17] MEDS: OXYCODONE IR 10 MG TABLET PO ×3 (00:29→12:19)
[2024-12-17 01:13] VITALS: BP 166/101; PULSE 72; RESP 16; TEMP 36.1; O2SAT 97
[2024-12-17 05:00] VITALS: BP 160/94; PULSE 74; RESP 16; O2SAT 96
[2024-12-17] MEDS: CEFAZOLIN VIAL 1 GM in SODIUM CHLORIDE 0.9% 100 ML IV ×2 (07:00→15:24)
--- NOTE | 2024-12-17 07:16 | PM.PN.IH.1 ---
Subjective Subjective Date Patient Seen: 12/17/24 Time Patient Seen: 07:15 Interval history: Patient is resting comfortably in bed states he is having decreased chest pain he thinks the subcutaneous emphysema is going down. Patient is postop day 2. Left chest tube for pneumothorax. Patient is still on chest tube suction continuous with Pleur-evac showing large leak with respirations. Discussed with patient the findings need to transfer to definitive care discussed with Dr. Johnson at [facility] he agrees to take him we will transfer him to the ER as they are short of beds he will evaluate him then and see about possible changing out the chest tube versus VATS procedure. All questions were answered to patient's satisfaction patient is mostly concerned about leaving his car at the hospital. Patient has no morning laboratory. Morning chest x-ray is pending. Vitals: Temperature is 97.0? pulse 74 respirations 16 BP is 160/94 SaO2 is 96% Heart regular rate and rhythm without murmurs. Lungs diminished on the left due to subcutaneous emphysema but breath sounds are heard subcutaneous emphysema is diminishing when it is extending into the neck and onto the right chest. Pleur-evac shows weak with inspiration which is quite large. Minimal serous drainage. Impression: Left chest spontaneous pneumothorax chest tube day 2. Showing massive leak with inspiration Hypertension Tobacco abuse Plan: Discussed with patient the findings we will transfer to [facility] ER care of Dr. Joy for definitive care of the large pleural leak as it has not resolving with chest tube drainage procedure were explained to patient patient will be transported by ambulance in stable condition all questions were answered the patient's satisfaction. We will transport this day. Exam Vital Signs (past 8 hours): - 12/17/24 01:13 12/17/24 05:00 Temperature 97.0 F L Pulse Rate 72 74 Respiratory Rate 16 16 Blood Pressure 166/101 H 160/94 H Pulse Oximetry 97 96 Oxygen Flow Rate 4 4 Oxygen Delivery Method Room Air Oxygen Flow Rate 4 Objective Labs 12/16/24 04:20 12/16/24 04:20 Labs: Laboratory Results - last 24 hr 12/15/24 12/16/24 04:20 19:21 Total Creatine Kinase 182 H Troponin I < 0.012 Hepatitis A IgM Ab Negative Hep Bs Antigen Negative Hep B Core IgM Ab Negative Hepatitis C Antibody Non reactive Hep C Ab Signal/Cutoff Comment PFSH Social History household members: none Smoking Status: Current every day smoker Assessment & Plan Time-Based Coding :: [TOTAL MINUTES] spent with patient and on the chart (including review of chart, obtaining history, exam, reviewing outside data, placing orders, documenting exam and treatment plan, and counseling patient) on [DATE]. PROFEE [employer] Document charge(s): Yes
--- NOTE | 2024-12-17 07:23 | PM.DS.IH.1 ---
History of Present Illness History of Present Illness Date Patient Seen: 12/17/24 Time Patient Seen: 07:25 Date of Onset of Symptoms: 12/15/24 Chief complaint: SOB, chest pain Lt shoulder pain blurred vision Narrative: Patient is a 44-year-old white male presents to the emergency room left-sided chest pain shortness of breath would occur at work after coughing and approximately 11:30 a.m.. Patient was worked up by the emergency room was noted to have a left 50% pneumothorax I was asked to see patient for surgical evaluation and placement of chest tube. Patient's admitting laboratory shows WBC of 10.5 hemoglobin is 16.9 hematocrit is 48 platelets are 209,000 PT is 11.2 PTT is 33 sodium is 137 potassium 4.3 chloride 104 bicarb is 19 BUN of 5 creatinine 0.99 random blood sugar is 94 total bilirubin is 1.5 AST is 52 ALT is 53 alkaline phosphatase 95 patient's CPK is 363 lipase is 39. Chest x-ray was performed which shows a 50% left pneumothorax. Patient has not seen a family physician in years Allergies: NKDA Medications: None Past medical history: Patient denies any other heart lungs digestive musculoskeletal neurological seizure disorder psychiatric problems risks infectious disease HIV or AIDS Past surgical history unremarkable denies any history of screening scopes Social history works in the [employer], history of tobacco use 1/2-1 pack per day times 25 years. Two years ago vaping for 2-1/2 years alcohol drinks 4 beers per day states they only drinks 12 beers per week denies any recreational drugs but then later recanted and states that he has done all drugs in the past including injecting meth. Vitals: Patient is 5 ft 9210 lb, temperature is 96.9? pulse is 104 respirations 20 BP is 192/151 SaO2 is 94% Heart regular rate and rhythm without murmurs lungs are clear and the right but no breath sounds are noted on the left abdomen is soft nondistended and a moist gauze Allison Almazan's Lui's McBurney's no masses or peritoneal signs are elicited musculoskeletal moderate muscle tone and strength bilaterally no gross deficits elicited in Patient was seen in consultation discussed with patient the need for chest tube placement procedure risks and complications were fully explained including risk for cardiopulmonary depression infection bleeding and need for a larger chest tube if dislodged. Patient understood and consented consent was performed time-out was performed patient procedure and surgeon. Patient was prepped and draped in usual sterile fashion with Lamin. The patient was given adequate IV sedation was given 10 of Valium and morphine 20 mg patient was still awake and communicating. Patient with liberally injected with xylocaine 1% with epi overlying the 5th 6th interspace liberally injected the skin subQ and the intercostals and the periosteum of the superior rib. Incision was made with 15. Knife blade dissected down with a large hemostat entered into the chest cavity with a large gush of air the 20 [place] tube was inserted with a hemostat advanced to the appropriate distance and then placed a suction suctioned to the pleura vac previously been prepared was quite poor with withdrawing the tube and had excellent air flow no active air leak was noted this was then sutured in place with 0 silk x2 patient then had drain sponge was applied bulky bandage and taped in place with silk tape the connection to the Pleur-evac was taped with silk tape chest x-ray shows reinflation of the left lung. Impression: Left spontaneous pneumothorax need for left chest tube History of tobacco abuse 1/2-1 pack per day times 25 years. 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 Slightly elevated CPK Elevated total bilirubin Plan: Discussed with patient the finding we will go ahead and admit to the hospital and monitor we will consult the hospitalist for the changes in the CPK we will go ahead and continue suction for the Pleur-Evac 0 if thought lung remains inflated for 24 hours we will DC suctioned and DC chest tube in the next 48 hours patient will also have a drug screen performed as do the elevated bilirubin we will follow patient closely no need for replacement with the tube patient was given precautions about getting out of bed if he dislodged as the tube may need to reinserted at bedside patient understands all questions answered to satisfaction we will follow patient closely. No letter to family physician he has none. Discharge Providers Provider Date of admission: 12/15/24 15:00 Discharge Date: 12/17/24 Primary care physician: Rodney Obrien DO Consults: 12/15/24 12:42 Consult to General Surgery Stat Comment: Consulting Provider: Mazin Montalvo Reason for consultation: L pneumothorax Has provider been notified: Yes Discharge provider: Mazin Montalvo DO Summary Hospital Course Discharge Diagnosis: History of left spontaneous pneumothorax with pleural vac showing large pleural leak need for definitive care at a tertiary hospital Hospital Course: See dictated H and P. Patient was seen in the emergency room with a 50% pneumothorax patient was treated with a 20 [place] chest tube with resolution of the pneumothorax admitted to the hospital for observation. Patient was doing well but had slight retraction of the chest tube. Patient continued to have Pleur-evac suction but developed a small leak during the evening patient had large leak with inspiration chest x-ray showed pneumothorax is not reoccurred but have massive subcutaneous emphysema which was causing patient has some discomfort. Cardiac enzymes were performed which showed decreasing CPK with a troponin of less than 0.012 unable to do EKG as the subcutaneous emphysema would cause abnormalities in the EKG. Contacted [facility] discussed with Dr. Joy thoracic surgeon the findings they have no beds available but he desires to have him sent to the emergency room we will evaluate their admit for definitive care. Discussed the findings with patient he is in agreement all questions were answered to satisfaction we will transport this morning patient is in stable condition. Status at Discharge Cognitive/behavioral status at discharge: calm Functional status at discharge: bed bound Time Spent with Patient Time spent: Greater than 30 minutes Time spent discussing smoking cessation with patient: more than 10 minutes Exam Vital Signs (past 8 hours): - 12/17/24 01:13 12/17/24 05:00 Temperature 97.0 F L Pulse Rate 72 74 Respiratory Rate 16 16 Blood Pressure 166/101 H 160/94 H Pulse Oximetry 97 96 Oxygen Flow Rate 4 4 Oxygen Delivery Method Room Air Oxygen Flow Rate 4 Narrative Exam Narrative: Patient is noted considerable subcutaneous emphysema appears to be slightly decreased from the previous evening but massive left chest subcutaneous emphysema some traveling to the right chest and into the neck bilaterally. Heart regular rate and rhythm without murmurs. Lungs diminished on the left side due to subcutaneous emphysema but appeared to be intact. Patient's morning chest x-ray is pending. Patient's Pleur-Evac shows small leak but with inspiration has a large leak. Pleur-evac continues on suctioned. Objective Labs 12/16/24 04:20 12/16/24 04:20 Labs: Laboratory Results - last 24 hr 12/15/24 12/16/24 04:20 19:21 Total Creatine Kinase 182 H Troponin I < 0.012 Hepatitis A IgM Ab Negative Hep Bs Antigen Negative Hep B Core IgM Ab Negative Hepatitis C Antibody Non reactive Hep C Ab Signal/Cutoff Comment PFSH Social History household members: none Smoking Status: Current every day smoker Discharge Plan Discharge Plan Patient Disposition: [facility] Other facility: Transfer [facility] ER care of Dr. Joy Under care of provider: Dr. Montalvo Provider Discharge Comment: Patient will be transported to [facility] for higher level of care treatment of persistent pleural leak Diet/Activity/Treatments Diet: Regular Food texture: Regular Oxygen: 2-4 L as needed Skin/Wound/Dressing Care Dressing: Leave dressing intact Visit Report/Discharge Packet Instructions: Pneumothorax Discharge Data Primary Care Provider: Rodney Obrien PROFEE Charge Codes Discharge inpatient/observation: 96162 (Transfer by ambulance to [facility] ER care of Dr. Joy)
[2024-12-17 08:00] VITALS: BP 134/81; PULSE 67; RESP 16; TEMP 37; O2SAT 95
[2024-12-17] MEDS: ENOXAPARIN 40 MG/0.4 ML SYRINGE SUBCUT (09:10)
[2024-12-17] MEDS: ONDANSETRON 4 MG/2 ML INJ IV ×2 (09:10→17:19)
[2024-12-17] MEDS: SODIUM CHLORIDE 0.9% FLUSH 10 ML IV (09:10)
--- NOTE | 2024-12-17 10:38 | CM.DPNOTE ---
DCP Cont Patient discussed in morning rounds; air leak is persistent. General surgery has arranged for transfer to ER for thoracic surgery. From Dr Montalvo's DC Summary: Discharge Plan Other facility: Transfer [facility] ER care of Dr. Joy Under care of provider: Dr. Montalvo Provider Discharge Comment: Patient will be transported to [facility] for higher level of care treatment of persistent pleural leak No needs from this SW team identified. JW
[2024-12-17 12:00] VITALS: BP 148/107; PULSE 65; RESP 16; TEMP 36.6; O2SAT 99
--- NOTE | 2024-12-17 15:36 | PC.NURSE ---
Pt notified RN that his left shoulder was starting to hurt. Crepitus sensation noted on left side of pt's chest. No tracheal deviation. Pt denies SOB or difficulty breathing. Dr. Montalvo notified by phone. No new orders at this time. Pt is still awaiting transfer to .
[2024-12-17 16:00] VITALS: BP 157/94; PULSE 60; RESP 16; O2SAT 96
--- NOTE | 2024-12-17 17:22 | PC.NURSE ---
Pt report given to Franci MOREIRA at [facility] 4SE. Tele removed. Pt leaving with IV in LAC. Zofran given prior to d/c d/t nausea. Report also given to S transportation, and pt exited via stretcher.
== END 2024-12-17 17:24 | disposition short-term general hospital (02) | DRG 143 ==
LOC: ED 14:58 → AC 15:01
PROVIDERS: Internal Medicine; Admitting Provider Surgery; Emergency Provider Emergency Medicine; PCP Internal Medicine; Referring Provider Emergency Medicine; Visit Provider Surgery
DX: J93.0 Spontaneous tension pneumothorax (principal); F15.91 Other stimulant use, unspecified, in remission; J98.2 Interstitial emphysema; E80.6 Other disorders of bilirubin metabolism; F10.90 Alcohol use, unspecified, uncomplicated; Z87.891 Personal history of nicotine dependence
CPT/HCPCS: 32551; 36415; 71045; 80053; 80074; 80305; 82550; 83690; 83735; 83880; 84484; 85025; 85610; 85730; 86850; 86900; 86901; 93005; 96374; 96375; 96376; 99285; 99406; J0690; J1171; J1650; J2270; J2405; J3360